=== PATIENT | female | born 1955 | race Caucasian/White ===

== ENCOUNTER 2020-03-07 09:34 | Emergency (ER) | payer OTHER, SELFPAY ==
--- NOTE | ~2020-03-07 | XR_ITS ---
EXAMINATION: XR wrist LT min 3V, XR hand LT min 3V EXAM DATE: 03/07/2020 10:23 (accession [id number]), 03/07/2020 10:24 (accession [id number]) INDICATION: Left hand and wrist pain, fell last night. Initial encounter. TECHNIQUE: Left hand frontal, lateral and oblique projections obtained and reviewed. Left wrist fron giancarlo, oblique and lateral projections obtained and reviewed. There is no prior study for comparison. FINDINGS: There are acute closed posttraumatic left 2nd-4th metacarpal neck fractures, with a few mil limeters of displacement at the 2nd and 3rd fracture sites. These appear to be extra-articular. This finding has been indicated, marked on the examination for review, clinical correlation. There is ove rlying soft tissue swelling. No other suspicious findings. Left wrist scapholunate joint space is ma intained. IMPRESSION: Acute left 2nd-4th metacarpal neck fractures. Reviewed, dictated and finalized at location A. IMPRESSION: Acute left 2nd-4th metacarpal neck fractures.
[2020-03-07 09:47] VITALS: BP 136/96; PULSE 98; RESP 18; TEMP 36.9; O2SAT 97
[2020-03-07] MEDS: ONDANSETRON HCL ODT 4 MG TABLET PO (11:11)
[2020-03-07] MEDS: HYDROMORPHONE HCL 1 MG/ML INJ IM (11:12)
--- NOTE | 2020-03-07 11:15 | ED.UPPEXIN ---
HPI - Extremity Injury (Upper) General Chief Complaint: Extremity Injury, Upper Stated Complaint: wrist injury Time Seen by Provider: 03/07/20 10:15 Source: patient Mode of arrival: ambulatory Limitations: no limitations History of Present Illness HPI narrative: This patient is a 64 year old female who presents for evaluation of left hand pain and swelling. PAtient states last night she tripped on carpet and she fell onto her left hand. She initially applied ice but then her hand pain worsening. She takes codeine sulfate chronically for her feet pain. She does not take anticoagulation. She denies head injury. Related Data Home Medications Medication Instructions Recorded Confirmed codeine sulfate 30 mg 03/07/20 cyanocobalamin (vitamin B-12) 1,000 mcg IM MONTHLY 03/07/20 03/07/20 diazepam 5 mg PO 03/07/20 levothyroxine 100 mcg PO DAILY 03/07/20 03/07/20 Allergies Allergy/AdvReac Type Severity Reaction Status Date / Time acetaminophen Allergy Dizziness Verified 03/07/20 09:43 diphenhydramine Allergy Dizziness Verified 03/07/20 09:43 hydrocodone [From [place]] Allergy Dizziness Verified 03/07/20 09:44 ketorolac Allergy Dizziness Verified 03/07/20 09:44 Review of Systems Review of Systems: All systems reviewed & are unremarkable except as noted in HPI and below PMFSH Surgical History Surgical History (Updated 03/07/20 @ 11:21 by Kelly Reed MD) H/O brain surgery Social History Social History Gender identity (if verbalized by the patient): Female Exam Const: General: alert Orientation/consciousness: patient oriented x3 HENMT: Head: normocephalic and atraumatic Eyes: Pupils: Equal, round and reactive pupils present EOM: EOMs intact bilaterally Skin: Other: bruising and swelling to left hand dorsum Neuro: General: patient oriented x3 and moves all extremities Extrem: Other: left hand with bruising and swelling to dorsum of hand Psych: Mental Status: mental status grossly normal Course Reevaluation(s) Reevaluation #1: Patient is here from out of town. She understands that she will need to be seen a hand surgeon this week for evaluation. She has been placed on ulnar gutter splint that covers 2nd metacarpal as well. Date: 03/07/20 Time: 11:59 Vital Signs Vital signs: Vital Signs Temperature 98.5 F 03/07/20 09:47 Pulse Rate 98 03/07/20 09:47 Respiratory Rate 18 03/07/20 09:47 Blood Pressure 136/96 H 03/07/20 09:47 Pulse Oximetry 97 03/07/20 09:47 Temperature 98.5 F 03/07/20 09:47 Pulse Rate 98 03/07/20 09:47 Respiratory Rate 18 03/07/20 09:47 Blood Pressure 136/96 H 03/07/20 09:47 Pulse Oximetry 97 03/07/20 09:47 MDM - Extremity Injury (Upper) Imaging Data Radiologist's impression: ITS Impressions Hand X-Ray 03/07/20 10:24 IMPRESSION: Acute left 2nd-4th metacarpal neck fractures. Wrist X-Ray 03/07/20 10:24 IMPRESSION: Acute left 2nd-4th metacarpal neck fractures. Discharge Plan Discharge Clinical Impression: Fracture of metacarpal, multiple sites, left hand, closed Qualifiers: Encounter type: initial encounter Qualified Code(s): S62.309A - Unspecified fracture of unspecified metacarpal bone, initial encounter for closed fracture Patient Disposition: Home, Self-Care Condition: Stable Instructions: Hand Fracture (ED), How to Use a Sling (ED) Additional Instructions: Today you were found to have fractures to your 2nd, 3rd and 4th metacarpal neck bones. On your return to [place] this week you need to follow up with a hand surgeon for treat of your broken hand. Keep hand elevated when possible. Apply ice to reduce swelling. Prescriptions: New oxycodone 5 mg capsule 5 mg PO Q6H PRN (Reason: pain) Qty: 14 RF: 0 No Action codeine sulfate 30 mg RF: 0 cyanocobalamin (vitamin B-12) 1,000 mcg IM MONTHLY RF: 0 diazepam 5 mg PO RF: 0 levothyro
== END 2020-03-07 12:30 | disposition home or self-care (01) ==
PROVIDERS: Emergency Provider General Practice
DX: S62.331A Displaced fracture of neck of second metacarpal bone, left hand, initial encounter for closed fracture (principal); S62.333A Displaced fracture of neck of third metacarpal bone, left hand, initial encounter for closed fracture; S62.335A Displaced fracture of neck of fourth metacarpal bone, left hand, initial encounter for closed fracture; W18.09XA Striking against other object with subsequent fall, initial encounter
CPT/HCPCS: 29125; 73110; 73130; 96372; 99284; A4565; A9270; J1170